=== PATIENT | male | born 1985 | race Caucasian/White ===

== ENCOUNTER 2018-05-01 23:02 | Day surgery (SDC) | payer BC ==
[~2018-05-01] VITALS: Ht 180.3 cm; Wt 82.1 kg
[2018-05-02] MEDS ORDERED: ADVIL200 MG PO (01:05)
[2018-05-02 07:51] VITALS: BP 121/60
== END 2018-05-02 09:35 | disposition home or self-care (01) ==
LOC: EME 23:02 → SDC 05-02 02:09 → 2EAST 05-02 02:30 → 2SOUTH 05-02 02:30 → ENRESERV 05-02 02:49 → 2EAST 05-02 03:18
PROVIDERS: Emergency Medicine
PROC: 0DC58ZZ Extirpation of Matter from Esophagus, Via Natural or Artificial Opening Endoscopic (ICD-10-PCS; principal; 2018-05-02)
DX: T18.128A Food in esophagus causing other injury, initial encounter (principal); K20.9 Esophagitis, unspecified
CPT/HCPCS: 70360; 71046; 82948; 99281; 99285; G0378